=== PATIENT | female | born 1970 | race Caucasian/White ===

== ENCOUNTER 2021-06-08 13:57 | Emergency (ER) | payer OTHER ==
[2021-06-08] MEDS ORDERED: ZOFRAN ODT 4 MG4 MG PO (19:15)
[2021-06-08] MEDS ORDERED: PERCOCET 5-3251 EACH PO (19:15)
== END 2021-06-08 19:38 | disposition home or self-care (01) ==
LOC: ER1 13:57
DX: S82.141A Displaced bicondylar fracture of right tibia, initial encounter for closed fracture (principal); S82.831A Other fracture of upper and lower end of right fibula, initial encounter for closed fracture; S82.254A Nondisplaced comminuted fracture of shaft of right tibia, initial encounter for closed fracture; F17.200 Nicotine dependence, unspecified, uncomplicated; V86.59XA Driver of other special all-terrain or other off-road motor vehicle injured in nontraffic accident, initial encounter; Y92.410 Unspecified street and highway as the place of occurrence of the external cause; Y99.9 Unspecified external cause status
CPT/HCPCS: 73564; 73590; 73700; 99284